=== PATIENT | female | born 1945 | race Caucasian/White ===

== ENCOUNTER 2024-12-18 10:53 | Emergency (ER) | payer MEDICAID ==
[~2024-12-18] VITALS: Ht 165.1 cm; Wt 98.0 kg
[2024-12-18 11:05] VITALS: O2SAT 99
[2024-12-18] MEDS: NAPROXEN 375MG TABLET PO ONE (13:17)
[2024-12-18] MEDS: TETRACAINE 0.5% OPHTH DROPS 4ML BOTHEYE ONE (13:17)
[2024-12-18] MEDS: FLUORESCEIN SODIUM 1MG/STRIP BOTHEYE ONE (13:17)
[2024-12-18] MEDS: FLUORESCEIN SODIUM 1MG/STRIP BOTHEYE NR (14:00)
[2024-12-18] MEDS ORDERED: BRIM2.5D OP (15:45)
[2024-12-18] MEDS ORDERED: NAPR-677 MT (15:45)
[2024-12-18 16:34] VITALS: BP 190/76; PULSE 68; RESP 18; TEMP 36.4; O2SAT 98
== END 2024-12-18 16:48 | disposition home or self-care (01) ==
LOC: ER 12:18
DX: M17.11 Unilateral primary osteoarthritis, right knee (principal); H61.23 Impacted cerumen, bilateral; H57.13 Ocular pain, bilateral; I10 Essential (primary) hypertension; Z79.1 Long term (current) use of non-steroidal anti-inflammatories (NSAID); Z79.899 Other long term (current) drug therapy
CPT/HCPCS: 29505; 73560; 99283